=== PATIENT | female | born 1990 | race African-American/Black ===

== ENCOUNTER 2018-07-13 16:41 | Emergency (ER) | payer OTHER, MEDICAID ==
[~2018-07-13] VITALS: Ht 162.6 cm; Wt 77.1 kg
[~2018-07-13 16:41] MED LIST: CIPROFLOXACIN500 M1 PO; DOXYCYCLINE 10100 MG PO; FLAGYL500 MG PO; IBUPROFEN 800800 M1 PO; NAPROSYN500 MG PO; NOHOMEMEDICATIONS; NORCO 5-325 TA1 EACH PO; PRENATAL; PYRIDIUM200 MG PO; TESSALON200 MG PO; VAGISIL CREAM28 GM TP; ZPAK PO
[2018-07-13 16:57] VITALS: BP 115/62
[2018-07-13 17:00] LABS: URINE BILIRUBIN NEGATIVE (Negative); URINE BLOOD TRACE (Negative); URINE CLARITY CLEAR; URINE COLOR DARK YELLOW; URINE GLUCOSE-RANDOM NEGATIVE (Negative); URINE KETONES NEGATIVE (Negative); URINE LEUKOCYTES-REFLEX NEGATIVE (Negative); URINE NITRITE-REFLEX POSITIVE (Negative); URINE PROTEIN TRACE (Negative); URINE SPECIFIC GRAVITY >= 1.030 (1.005-1.030)
[2018-07-13 17:07] LABS: CASTS None Seen /LPF (None Seen); MUCUS 0-3 Light strn/LPF (None Seen); SQUAMOUS 4-10 Moderate /LPF (0-3)
[2018-07-13 17:08] LABS: BACTERIA-REFLEX 1-9 Few /HPF (None Seen); CRYSTALS None Seen /LPF (None Seen); URINE RBC 0-2 Rare /HPF (0-2); URINE WBC-REFLEX 0-5 Rare /HPF (0-5)
[2018-07-13] MEDS ORDERED: MACROBID 100 M100 M1 PO (17:18)
== END 2018-07-13 17:22 | disposition home or self-care (01) ==
LOC: M.ERS 16:41
PROVIDERS: Physician Assistant
DX: N39.0 Urinary tract infection, site not specified (principal); Z91.018 Allergy to other foods

== ENCOUNTER 2018-12-19 15:44 | Emergency (ER) | payer OTHER, MEDICAID ==
[~2018-12-19] VITALS: Ht 165.1 cm; Wt 96.2 kg
[~2018-12-19 15:44] MED LIST changes: +MACROBID 100 M100 M1 PO
[2018-12-19 17:02] VITALS: BP 145/80
== END 2018-12-19 17:00 | disposition home or self-care (01) ==
LOC: M.ERS 15:44
DX: O26.893 Other specified pregnancy related conditions, third trimester (principal); N89.8 Other specified noninflammatory disorders of vagina; F17.200 Nicotine dependence, unspecified, uncomplicated; Z91.018 Allergy to other foods; Z3A.28 28 weeks gestation of pregnancy